=== PATIENT | male | born 1955 | race Caucasian/White ===

== ENCOUNTER 2018-06-02 11:36 | Emergency (ER) | payer MEDICAID ==
[2018-06-02 11:54] VITALS: BP 135/80
== END 2018-06-02 13:16 | disposition left against medical advice (07) ==
LOC: ED 11:36
DX: Z53.21 Procedure and treatment not carried out due to patient leaving prior to being seen by health care provider (principal)

== ENCOUNTER 2018-06-21 05:18 | Emergency (ER) | payer MEDICAID ==
[2018-06-21] MEDS ORDERED: AMOXICILLIN 250 MG CAPSULE PO STA (06:00)
--- NOTE | 2018-06-21 06:05 | ED Physician Documentation ---
PD HPI HEENT - Stated complaint Stated Complaint: MOUTH/JAW PX - Chief complaint Chief Complaint: Heent - History obtained from History obtained from: Patient - History of Present Illness Timing - onset: How many days ago (4) Timing - duration: Days (4) Timing - details: Gradual onset, Still present Location: Tooth Improves: Medication Associated symptoms: Facial swelling Similar symptoms before: Diagnosis (bad teeth) Recently seen: Other (tooth extraction done about 3 weeks ago.) - Additional information Additional information: 62 y/o male with a history of TBI has developed pain in multiple teeth about 3 weeks after having 3 left upper teeth extracted. He has multiple teeth broken off and has pain along the upper and lower on the right and along the lower on the left. He has no drainage or mass and has most of the tenderness along the lower jaw on the right. 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 He is able to have local anesthetic for extraction. Review of Systems Constitutional: reports: Fatigue. denies: Fever, Chills, Myalgias Eyes: denies: Decreased vision Ears: denies: Ear pain Nose: denies: Rhinorrhea / runny nose, Congestion Throat: reports: Dental pain / toothache Cardiac: denies: Chest pain / pressure, Palpitations Respiratory: denies: Dyspnea, Cough PD PAST MEDICAL HISTORY - Past Medical History Past Medical History: Yes Neuro: Peripheral neuropathy Musculoskeletal: Chronic back pain - Past Surgical History Past Surgical History: Yes Ortho: Hip replacement - Present Medications Home Medications: Ambulatory Orders Medication Instructions Recorded Confirmed Amoxicillin 875 mg PO BID #20 tablet 06/21/18 Hydrocodone/Acetaminophen 1 - 2 each PO Q6H PRN #14 tablet 06/21/18 [Hydrocodon-Acetaminophen 5-325] hydroCHLOROthiazide 0 mg PO 06/21/18 [Hydrochlorothiazide] - Allergies Allergies/Adverse Reactions: Allergies Allergy/AdvReac Type Severity Reaction Status Date / Time No Known Drug Allergies Allergy Verified 06/21/18 05:33 - Social History Does the pt smoke?: No Smoking Status: Never smoker Does the pt drink ETOH?: No Does the pt have substance abuse?: No PD ED PE NORMAL - Vitals Vital signs reviewed: Yes (hypertensive ) - General General: No acute distress, Well developed/nourished - HEENT HEENT: Atraumatic, PERRL, EOMI, Other (There are multiple teeth broken off at the base both upper and lower. There is maximum tenderness to the right lower jaw over the pre-molar area and there is tenderness to the buccal/gingival fold on the right lower without fluctuance. 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 He is given PO amoxicilin 750mg and we will place him on a course and provide some pain medication. Departure - Departure Disposition: 01 Home, Self Care Clinical Impression: Dental infection Condition: Stable Instructions: ED Abscess Dental Follow-Up: Warren Lopez MD [Provider Admit Priv/Credential] - Prescriptions: Amoxicillin 875 mg PO BID #20 tablet Hydrocodone/Acetaminophen [Hydrocodon-Acetaminophen 5-325] 1 - 2 each PO Q6H PRN #14 tablet PRN Reason: pain
[2018-06-21] MEDS ORDERED: HYDROcod/ACET 5/325 Prepack 4 PO STA (06:11)
[2018-06-21 06:16] VITALS: BP 158/82
== END 2018-06-21 06:30 | disposition home or self-care (01) ==
LOC: ED 05:18
DX: K04.7 Periapical abscess without sinus (principal)
CPT/HCPCS: 99283; A9270

== ENCOUNTER 2018-06-24 16:58 | Emergency (ER) | payer MEDICAID ==
[2018-06-24] MEDS ORDERED: SODIUM CHLORIDE 0.9% 2,000 ML IV ONE (17:31)
[2018-06-24] MEDS ORDERED: INSULIN REGULAR HUMAN 100 UNIT/1 ML 10 ML MDV IVP STA (17:31)
[2018-06-24 18:16] LABS: BASOPHILS % (AUTO) 0.7 %; EOSINOPHILS # (AUTO) 0.1 10^3/uL (0.0-0.7); EOSINOPHILS % (AUTO) 1.6 %; HGB - HEMOGLOBIN 13.2 g/dL (14.0-18.0); LYMPHOCYTES # (AUTO) 1.7 10^3/uL (1.5-3.5); LYMPHOCYTES % (AUTO) 30.5 %; MEAN CORPUSCULAR HEMOGLOBIN 29.5 pg (27.0-31.0); MEAN CORPUSCULAR VOLUME 86.7 fL (80.0-94.0); MONOCYTES # (AUTO) 0.3 10^3/uL (0.0-1.0); NEUTROPHILS # (AUTO) 3.5 10^3/uL (1.5-6.6); NEUTROPHILS % (AUTO) 61.2 %; PLT - PLATELET COUNT 239 10^3/uL (130-450); RED BLOOD COUNT 4.47 10^6/uL (4.70-6.10); RED CELL DISTRIBUTION WIDTH 13.9 % (12.0-15.0); WHITE BLOOD COUNT 5.7 x10^3/uL (4.8-10.8)
[2018-06-24 18:28] LABS: ALBUMIN 4.6 g/dL (3.2-5.5); ALBUMIN/GLOBULIN RATIO 1.4 (1.0-2.2); BILIRUBIN,TOTAL 0.7 mg/dL (0.2-1.0); CALCIUM 9.3 mg/dL (8.5-10.3); CREATININE 1.3 mg/dL (0.6-1.2)
[2018-06-24] MEDS ORDERED: SODIUM CHLORIDE 0.9% 1,000 ML IV ONE (18:35)
[2018-06-24 19:03] LABS: BILIRUBIN,URINE NEGATIVE (NEGATIVE); GLUCOSE, URINE (UA) >=1000 mg/dL (NEGATIVE); KETONES,URINE (UA) NEGATIVE (NEGATIVE); LEUKOCYTE ESTERASE, URINE NEGATIVE (NEGATIVE); NITRITE,URINE NEGATIVE (NEGATIVE); OCCULT BLOOD,URINE NEGATIVE (NEGATIVE); PROTEIN,URINE NEGATIVE (NEGATIVE); UROBILINOGEN,URINE 0.2 (NORMAL) E.U./dL (NORMAL)
[2018-06-24 19:04] LABS: CLARITY,URINE CLEAR (CLEAR)
--- NOTE | 2018-06-24 19:32 | ED Physician Documentation ---
History of Present Illness - Stated complaint Stated Complaint: HIGH BLOOD SUGAR/SENT BY DOC - Chief complaint Chief Complaint: General - Additonal information Additional information: 62-year-old male was sent to the emergency department For evaluation of elevated blood sugar. The patient found his blood sugar to be elevated today at home and his primary sent him in for further evaluation. The patient has no acute symptoms. The patient only takes his metformin when his blood sugar is elevated and does not take it on a daily basis. No reports of fevers, cough, dysuria or diarrhea. No other associated symptoms. No URI symptoms or other infectious symptoms. Symptoms are described as mild. No other associated symptoms. No triggering factors. No relieving factors Review of Systems Constitutional: denies: Fever, Chills Eyes: denies: Discharge Ears: denies: Ear pain Throat: denies: Sore throat Cardiac: denies: Chest pain / pressure, Palpitations Respiratory: denies: Dyspnea GI: denies: Abdominal Pain : denies: Dysuria Skin: denies: Rash Musculoskeletal: denies: Neck pain Neurologic: denies: Generalized weakness PD PAST MEDICAL HISTORY - Past Medical History Past Medical History: Yes Cardiovascular: Hypertension, High cholesterol Respiratory: Other Neuro: Head injury, Peripheral neuropathy Endocrine/Autoimmune: Type 2 diabetes GI: None : None HEENT: None Psych: Anxiety, Post traumatic stress disorder Musculoskeletal: Chronic back pain Derm: None - Past Surgical History Past Surgical History: Yes Ortho: Hip replacement - Present Medications Home Medications: Ambulatory Orders Medication Instructions Recorded Confirmed Amoxicillin 875 mg PO BID #20 tablet 06/21/18 Hydrocodone/Acetaminophen 1 - 2 each PO Q6H PRN #14 tablet 06/21/18 [Hydrocodon-Acetaminophen 5-325] hydroCHLOROthiazide 0 mg PO 06/21/18 [Hydrochlorothiazide] - Allergies Allergies/Adverse Reactions: Allergies Allergy/AdvReac Type Severity Reaction Status Date / Time No Known Drug Allergies Allergy Verified 06/21/18 05:33 - Social History Does the pt smoke?: No Smoking Status: Never smoker Does the pt drink ETOH?: No Does the pt have substance abuse?: No - Immunizations Immunizations are current?: Yes - POLST Patient has POLST: No PD ED PE NORMAL - General General: Alert and oriented X 3, No acute distress - HEENT HEENT: Atraumatic, PERRL, EOMI, Ears normal - Neck Neck: Supple, no meningeal sign - Cardiac Cardiac: RRR, Strong equal pulses - Respiratory Respiratory: No respiratory distress - Abdomen Abdomen: Soft, Non tender - Derm Derm: Normal color - Extremities Extremities: No deformity - Neuro Neuro: Alert and oriented X 3, Normal speech - Psych Psych: Normal affect Results - Vitals Vitals: Vital Signs - 24 hr 06/24/18 17:13 Temperature 36.8 C Heart Rate 108 H Respiratory 18 Rate Blood Pressure 137/95 H O2 Saturation 97 Oxygen O2 Source Room air - EKG (time done) 17:50 Rate: Rate (enter#) Rhythm: NSR Intervals: Normal ME Ischemia: Non specific changes - Labs Labs: Laboratory Tests 06/24/18 06/24/18 06/24/18 18:00 18:00 18:51 WBC 5.7 RBC 4.47 L Hgb 13.2 L Hct 38.8 L MCV 86.7 MCH 29.5 MCHC 34.0 RDW 13.9 Plt Count 239 MPV 9.0 Neut # (Auto) 3.5 Lymph # (Auto) 1.7 [place] # (Auto) 0.3 Eos # (Auto) 0.1 Baso # (Auto) 0.0 Absolute Nucleated RBC 0.01 Nucleated RBC % 0.2 Sodium 124 L Potassium 3.7 Chloride 89 L Carbon Dioxide 24 Anion Gap 11.0 BUN 23 H Creatinine 1.3 H Estimated GFR (MDRD) 56 L Glucose 445 H Calcium 9.3 Total Bilirubin 0.7 AST 16 ALT 19 Alkaline Phosphatase 99 Total Protein 8.0 Albumin 4.6 Globulin 3.4 Albumin/Globulin Ratio 1.4 Lipase 26 Urine Color YELLOW Urine Clarity CLEAR Urine pH 6.0 Ur Specific [place] 1.010 Urine Protein NEGATIVE Urine Glucose (UA) >=1000 H Urine Ketones NEGATIVE Urine Occult Blood NEGATIVE Urine Nitrite NEGATIVE Urine Bilirubin NEGATIVE Urine Urobilinogen 0.2 (NORMAL) Ur Leukocyte Esterase NEGATIVE Ur Microscopic Review NOT INDICATED Urine Culture Comments NOT INDICATED PD MEDICAL DECISION MAKING - ED course ED course: The patient's blood sugar responded with IV fluids and IV insulin. Presently, there is no acute finding that would necessitate admission to the hospital. The patient appears appropriate for discharge. I recommended that he take his metformin twice daily instead of just when his blood sugar is elevated. The p atient understands and agrees. I advised that the patient follow up with primary care tomorrow for further management of his diabetes. I discussed warning signs and recommended returning for any worsening or any concerns. Departure - Departure Disposition: Home, Self Care Clinical Impression: Hyperglycemia Condition: Good Instructions: Hyperglycemia, Diabetes High Blood Sugar Ch Follow-Up: Warren Lopez MD [Primary Care Provider] - Tomorrow Comments: Please start taking your metformin twice a day, you should take 500 mg twice daily. Please follow-up with your primary care tomorrow for ongoing investigation. Please return to the emergency department immediately for any worsening or any concerns.
[2018-06-24 19:41] VITALS: BP 137/81
== END 2018-06-24 19:45 | disposition home or self-care (01) ==
LOC: ED 16:58
DX: E11.65 Type 2 diabetes mellitus with hyperglycemia (principal); E11.42 Type 2 diabetes mellitus with diabetic polyneuropathy; Z79.84 Long term (current) use of oral hypoglycemic drugs; I10 Essential (primary) hypertension; T38.3X6A Underdosing of insulin and oral hypoglycemic [antidiabetic] drugs, initial encounter; Z91.14 Patient's other noncompliance with medication regimen
CPT/HCPCS: 36415; 80053; 81003; 83690; 85025; 93005; 96360; 96361; 99283; J1815; 81001; 87086

== ENCOUNTER 2018-06-25 17:05 | Emergency (ER) | payer MEDICAID ==
[2018-06-25 17:14] VITALS: BP 145/71
[2018-06-25] MEDS ORDERED: SODIUM CHLORIDE 0.9% 1,000 ML IV STA (17:23)
[2018-06-25] MEDS ORDERED: INSULIN REGULAR HUMAN 100 UNIT/1 ML 10 ML MDV IVP STA (17:52)
--- NOTE | 2018-06-25 17:56 | ED Physician Documentation ---
History of Present Illness - Stated complaint Stated Complaint: HIGH BLOOD SUGAR - Chief complaint Chief Complaint: General - History obtained from History obtained from: Patient - History of Present Illness Timing: How many days ago (2) Pain level max: 0 Pain level now: 0 Improved by: nothing Worsened by: nothing - Additonal information Additional information: Patient is a 62-year-old diabetic male who states that his blood sugars been high for the past several days. Seen here x2 and states his blood sugar increased again today. He has a history of traumatic brain injury and states he is taking his metformin half a pill once a day. He states that he also needs referrals for cognitive therapy as well as speech therapy, orthopedics and neurology. He states that his doctor will not prescribe these for him. Review of Systems Ten Systems: 10 systems reviewed and negative Constitutional: denies: Fever, Chills Ears: denies: Ear pain Nose: denies: Rhinorrhea / runny nose, Congestion Cardiac: denies: Chest pain / pressure Respiratory: denies: Cough, Wheezing Skin: denies: Rash Musculoskeletal: denies: Neck pain, Back pain Neurologic: denies: Headache PD PAST MEDICAL HISTORY - Past Medical History Past Medical History: Yes Cardiovascular: Hypertension, High cholesterol Respiratory: Other Neuro: Head injury, Peripheral neuropathy Endocrine/Autoimmune: Type 2 diabetes GI: None : None HEENT: None Psych: Anxiety, Post traumatic stress disorder Musculoskeletal: Chronic back pain Derm: None - Past Surgical History Past Surgical History: Yes Ortho: Hip replacement - Present Medications Home Medications: Ambulatory Orders Medication Instructions Recorded Confirmed Amoxicillin 875 mg PO BID #20 tablet 06/21/18 Hydrocodone/Acetaminophen 1 - 2 each PO Q6H PRN #14 tablet 06/21/18 [Hydrocodon-Acetaminophen 5-325] hydroCHLOROthiazide 0 mg PO 06/21/18 [Hydrochlorothiazide] Gemfibrozil 600 mg PO 06/25/18 06/25/18 Meclizine [Antivert] 1 06/25/18 Metformin HCl 1,000 mg PO BID #120 tablet 06/25/18 Metformin HCl [Fortamet] 500 mg PO 06/25/18 06/25/18 - Allergies Allergies/Adverse Reactions: Allergies Allergy/AdvReac Type Severity Reaction Status Date / Time No Known Drug Allergies Allergy Verified 06/25/18 17:14 - Social History Does the pt smoke?: No Smoking Status: Never smoker Does the pt drink ETOH?: No Does the pt have substance abuse?: No - Immunizations Immunizations are current?: Yes - POLST Patient has POLST: No PD ED PE NORMAL - Vitals Vital signs reviewed: Yes - General General: Alert and oriented X 3, No acute distress - HEENT HEENT: Moist mucous membranes - Neck Neck: Supple, no meningeal sign - Cardiac Cardiac: RRR, Strong equal pulses - Respiratory Respiratory: No respiratory distress, Clear bilaterally - Abdomen Abdomen: Soft, Non tender, Non distended - Derm Derm: Warm and dry - Neuro Neuro: Alert and oriented X 3 - Psych Psych: Normal mood, Normal affect Results - Vitals Vitals: Vital Signs - 24 hr 06/25/18 17:10 Temperature 36 C L Heart Rate 85 Respiratory 20 Rate Blood Pressure 145/71 H O2 Saturation 100 Oxygen O2 Source Room air - Labs Labs: Laboratory Tests 06/25/18 06/25/18 06/25/18 17:20 18:00 18:00 WBC 5.1 RBC 4.53 L Hgb 13.2 L Hct 39.6 L MCV 87.4 MCH 29.2 MCHC 33.5 RDW 13.9 Plt Count 242 MPV 9.0 Neut # (Auto) 2.9 Lymph # (Auto) 1.6 [place] # (Auto) 0.4 Eos # (Auto) 0.1 Baso # (Auto) 0.0 Absolute Nucleated RBC 0.01 Nucleated RBC % 0.2 VBG pH VBG pCO2 VBG pO2 VBG HCO3 VBG Total CO2 VBG O2 Saturation VBG Base Excess Sodium 129 L Potassium 4.0 Chloride 93 L Carbon Dioxide 26 Anion Gap 10.0 BUN 20 Creatinine 1.3 H Estimated GFR (MDRD) 56 L Glucose 438 H POC Whole Bld Glucose 479 H Glycated Hemoglobin Estim Average Glucose Calcium 9.6 Total Bilirubin 0.7 AST 16 ALT 19 Alkaline Phosphatase 93 Total Protein 7.9 Albumin 4.4 Globulin 3.5 Albumin/Globulin Ratio 1.3 Lipase 22 Urine Color Urine Clarity Urine pH Ur Specific [place] Urine Protein Urine Glucose (UA) Urine Ketones Urine Occult Blood Urine Nitrite Urine Bilirubin Urine Urobilinogen Ur Leukocyte Esterase Ur Microscopic Review Urine Culture Comments Serum Ketones NEGATIVE 06/25/18 06/25/18 06/25/18 18:00 18:00 18:55 WBC RBC Hgb Hct MCV MCH MCHC RDW Plt Count MPV Neut # (Auto) Lymph # (Auto) [place] # (Auto) Eos # (Auto) Baso # (Auto) Absolute Nucleated RBC Nucleated RBC % VBG pH 7.331 VBG pCO2 49.4 VBG pO2 42.7 VBG HCO3 25.5 VBG Total CO2 27.0 VBG O2 Saturation 78.3 VBG Base Excess -1.0 Sodium Potassium Chloride Carbon Dioxide Anion Gap BUN Creatinine Estimated GFR (MDRD) Glucose POC Whole Bld Glucose Glycated Hemoglobin 13.5 H Estim Average Glucose 341 H Calcium Total Bilirubin AST ALT Alkaline Phosphatase Total Protein Albumin Globulin Albumin/Globulin Ratio Lipase Urine Color YELLOW Urine Clarity CLEAR Urine pH 6.0 Ur Specific [place] 1.015 Urine Protein NEGATIVE Urine Glucose (UA) >=1000 H Urine Ketones NEGATIVE Urine Occult Blood NEGATIVE Urine Nitrite NEGATIVE Urine Bilirubin NEGATIVE Urine Urobilinogen 0.2 (NORMAL) Ur Leukocyte Esterase NEGATIVE Ur Microscopic Review NOT INDICATED Urine Culture Comments NOT INDICATED Serum Ketones 06/25/18 19:31 WBC RBC Hgb Hct MCV MCH MCHC RDW Plt Count MPV Neut # (Auto) Lymph # (Auto) [place] # (Auto) Eos # (Auto) Baso # (Auto) Absolute Nucleated RBC Nucleated RBC % VBG pH VBG pCO2 VBG pO2 VBG HCO3 VBG Total CO2 VBG O2 Saturation VBG Base Excess Sodium Potassium Chloride Carbon Dioxide Anion Gap BUN Creatinine Estimated GFR (MDRD) Glucose POC Whole Bld Glucose 251 H Glycated Hemoglobin Estim Average Glucose Calcium Total Bilirubin AST ALT Alkaline Phosphatase Total Protein Albumin Globulin Albumin/Globulin Ratio Lipase Urine Color Urine Clarity Urine pH Ur Specific [place] Urine Protein Urine Glucose (UA) Urine Ketones Urine Occult Blood Urine Nitrite Urine Bilirubin Urine Urobilinogen Ur Leukocyte Esterase Ur Microscopic Review Urine Culture Comments Serum Ketones PD MEDICAL DECISION MAKING - ED course Complexity details: reviewed old records, reviewed results, re-evaluated patient, considered differential, d/w patient ED course: 62-year-old male with hyperglycemia. Given insulin and his blood sugar decreased. Counseled again regarding the changes to his metformin. Hemoglobin A1c is over 13. Patient was counseled that he needs to take the metformin as prescribed and follow-up closely with his doctor to have his medications adjusted. No other emergency medical conditions at this time. Patient counseled regarding signs and symptoms for which I believe and urgent re- evaluation would be necessary. Patient with good understanding of and agreement to plan and is comfortable going home at this time This document was made in part using voice recognition software. While efforts are made to proofread this document, sound alike and grammatical errors may occur. Departure - Departure Disposition: 01 Home, Self Care Clinical Impression: Hyperglycemia Condition: Good Instructions: ED Hyperglycemia Diabetic Follow-Up: Warren Lopez MD [Primary Care Provider] - Within 3 Days Prescriptions: Metformin HCl 1,000 mg PO BID #120 tablet Comments: Your average blood sugar over the past 3 months has been over 340. You need to increase your metformin to 2 pills twice a day. Follow-up with your doctor for further care. Discharge Date/Time: 06/25/18 19:52
[2018-06-25 18:14] LABS: BASOPHILS % (AUTO) 0.6 %; EOSINOPHILS # (AUTO) 0.1 10^3/uL (0.0-0.7); EOSINOPHILS % (AUTO) 2.6 %; HGB - HEMOGLOBIN 13.2 g/dL (14.0-18.0); LYMPHOCYTES # (AUTO) 1.6 10^3/uL (1.5-3.5); LYMPHOCYTES % (AUTO) 31.9 %; MEAN CORPUSCULAR HEMOGLOBIN 29.2 pg (27.0-31.0); MEAN CORPUSCULAR HGB CONC 33.5 g/dL (32.0-36.0); MEAN CORPUSCULAR VOLUME 87.4 fL (80.0-94.0); MONOCYTES # (AUTO) 0.4 10^3/uL (0.0-1.0); MONOCYTES % (AUTO) 7.7 %; NEUTROPHILS # (AUTO) 2.9 10^3/uL (1.5-6.6); NEUTROPHILS % (AUTO) 57.2 %; PLT - PLATELET COUNT 242 10^3/uL (130-450); RED BLOOD COUNT 4.53 10^6/uL (4.70-6.10); RED CELL DISTRIBUTION WIDTH 13.9 % (12.0-15.0); WHITE BLOOD COUNT 5.1 x10^3/uL (4.8-10.8)
[2018-06-25 18:18] LABS: VBG PCO2 49.4 mmHg (41-51); VBG PH 7.331 (7.31-7.41); VBG PO2 42.7 mmHg (25-47)
[2018-06-25 18:23] LABS: KETONES, SERUM (ACETEST) NEGATIVE (NEGATIVE)
[2018-06-25 18:30] LABS: ALBUMIN 4.4 g/dL (3.2-5.5); ALBUMIN/GLOBULIN RATIO 1.3 (1.0-2.2); ALKALINE PHOSPHATASE 93 IU/L (42-121); ALT ALANINE AMINOTRANSFERASE 19 IU/L (10-60); AST ASPARTATE AMINOTRANSFERASE 16 IU/L (10-42); BILIRUBIN,TOTAL 0.7 mg/dL (0.2-1.0); BUN - BLOOD UREA NITROGEN 20 mg/dL (6-20); CALCIUM 9.6 mg/dL (8.5-10.3); CARBON DIOXIDE - CO2 26 mmol/L (21-32); CHLORIDE 93 mmol/L (101-111); CREATININE 1.3 mg/dL (0.6-1.2); GFR - MDRD 56 (>89); GLUCOSE 438 mg/dL (70-100); LIPASE 22 U/L (22-51); SODIUM 129 mmol/L (135-145); TOTAL PROTEIN 7.9 g/dL (6.7-8.2)
[2018-06-25 18:48] LABS: HEMOGLOBIN A1C 1.73 g/dL; HEMOGLOBIN A1C % 13.5 % (4.6-6.2)
[2018-06-25 19:08] LABS: BILIRUBIN,URINE NEGATIVE (NEGATIVE); GLUCOSE, URINE (UA) >=1000 mg/dL (NEGATIVE); KETONES,URINE (UA) NEGATIVE (NEGATIVE); LEUKOCYTE ESTERASE, URINE NEGATIVE (NEGATIVE); NITRITE,URINE NEGATIVE (NEGATIVE); OCCULT BLOOD,URINE NEGATIVE (NEGATIVE); PROTEIN,URINE NEGATIVE (NEGATIVE); UROBILINOGEN,URINE 0.2 (NORMAL) E.U./dL (NORMAL)
[2018-06-25 19:09] LABS: CLARITY,URINE CLEAR (CLEAR)
== END 2018-06-25 19:52 | disposition home or self-care (01) ==
LOC: ED 17:05
DX: E11.65 Type 2 diabetes mellitus with hyperglycemia (principal); E11.42 Type 2 diabetes mellitus with diabetic polyneuropathy; Z79.84 Long term (current) use of oral hypoglycemic drugs; T38.3X6A Underdosing of insulin and oral hypoglycemic [antidiabetic] drugs, initial encounter; Z91.14 Patient's other noncompliance with medication regimen; I10 Essential (primary) hypertension; Z87.820 Personal history of traumatic brain injury
CPT/HCPCS: 36415; 80048; 80053; 81003; 82009; 82803; 83036; 83690; 84484; 85025; 93005; 96360; 96361; 99283; 99284; A9270; J1815; 81001; 87086

== ENCOUNTER 2018-07-18 20:05 | Emergency (ER) | payer MEDICAID ==
[2018-07-18 20:18] VITALS: BP 174/79
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
[2018-07-18] MEDS ORDERED: METHOCARBAMOL 500 MG TABLET PO STA (20:57)
[2018-07-18] MEDS ORDERED: NAPROXEN 250 MG TABLET PO STA (20:57)
[2018-07-18] MEDS ORDERED: HYDROcod/ACET 5/325 Prepack 4 PO STA (20:57)
== END 2018-07-18 21:14 | disposition home or self-care (01) ==
LOC: ED 20:05
DX: M54.2 Cervicalgia (principal); I10 Essential (primary) hypertension; E78.00 Pure hypercholesterolemia, unspecified; E11.42 Type 2 diabetes mellitus with diabetic polyneuropathy; G89.29 Other chronic pain; Z96.649 Presence of unspecified artificial hip joint; Z87.820 Personal history of traumatic brain injury
CPT/HCPCS: 99283; A9270

== ENCOUNTER 2018-09-29 14:36 | Emergency (ER) | payer MEDICAID ==
[2018-09-29] MEDS ORDERED: KETOROLAC 60 MG/2 ML VIAL IM STA (15:30)
--- NOTE | 2018-09-29 15:31 | ED Physician Documentation ---
PD HPI BACK PAIN - Stated complaint Stated Complaint: LOWER BACK PX - Chief complaint Chief Complaint: Back Pain - History obtained from History obtained from: Patient - History of Present Illness Timing - onset: Chronic Timing - duration: Years Timing - details: Gradual onset Pain level max: 8 Pain level now: 5 Location: Lower, Right, Left Quality: Pain, Spasm, Similar to prior episodes Associated symptoms: No: Fever, Weakness, Numbness, Incontinent of urine, Unable to urinate, Hematuria, Incontinent of stool Improves with: Rest Worsened by: Movement, Lifting Contributing factors: Out of meds Recently seen: Not recently seen Review of Systems Constitutional: denies: Fever, Chills Skin: denies: Rash Musculoskeletal: denies: Neck pain Neurologic: denies: Focal weakness, Numbness PD PAST MEDICAL HISTORY - Past Medical History Cardiovascular: Hypertension, High cholesterol Respiratory: Other Neuro: Head injury, Peripheral neuropathy Endocrine/Autoimmune: Type 2 diabetes GI: None : None HEENT: None Psych: Anxiety, Post traumatic stress disorder Musculoskeletal: Chronic back pain Derm: None - Past Surgical History Past Surgical History: Yes Ortho: Hip replacement - Present Medications Home Medications: Ambulatory Orders Medication Instructions Recorded Confirmed Amoxicillin 875 mg PO BID #20 tablet 06/21/18 Hydrocodone/Acetaminophen 1 - 2 each PO Q6H PRN #14 tablet 06/21/18 [Hydrocodon-Acetaminophen 5-325] hydroCHLOROthiazide 0 mg PO 06/21/18 [Hydrochlorothiazide] Gemfibrozil 600 mg PO 06/25/18 06/25/18 Meclizine [Antivert] 1 06/25/18 Metformin HCl 1,000 mg PO BID #120 tablet 06/25/18 Metformin HCl [Fortamet] 500 mg PO 06/25/18 06/25/18 Hydrocodone/Acetaminophen [[place] 1 each PO Q6H PRN #15 tablet 07/18/18 5-325 Tablet] Methocarbamol [Robaxin] 500 mg PO TID PRN #20 tablet 07/18/18 Naproxen 500 mg PO BID #20 tablet 07/18/18 Cyclobenzaprine [Flexeril] 10 mg PO TID PRN #20 tablet 09/29/18 Meloxicam [Mobic] 15 mg PO DAILY PRN #20 tablet 09/29/18 - Allergies Allergies/Adverse Reactions: Allergies Allergy/AdvReac Type Severity Reaction Status Date / Time No Known Drug Allergies Allergy Verified 09/29/18 15:55 - Social History Does the pt smoke?: No Smoking Status: Never smoker Does the pt drink ETOH?: No Does the pt have substance abuse?: No - Immunizations Immunizations are current?: Yes - POLST Patient has POLST: No PD ED PE NORMAL - Vitals Vital signs reviewed: Yes - General General: Alert and oriented X 3, No acute distress - HEENT HEENT: Moist mucous membranes - Neck Neck: Supple, no meningeal sign - Cardiac Cardiac: RRR - Respiratory Respiratory: No respiratory distress, Clear bilaterally - Back Back: No spinal TTP - Derm Derm: Warm and dry - Neuro Neuro: Alert and oriented X 3 Results - Vitals Vitals: Vital Signs - 24 hr 09/29/18 09/29/18 14:41 16:19 Temperature 36.6 C 36.4 C L Heart Rate 107 H 95 Respiratory 18 12 Rate Blood Pressure 151/51 H 137/83 H O2 Saturation 96 96 Oxygen O2 Source Room air PD MEDICAL DECISION MAKING - ED course Complexity details: considered differential, d/w patient ED course: Patient with chronic back pain. Will place on muscle relaxants and anti- inflammatories for home. Sees his doctor tomorrow. No evidence of cauda equina, epidural abscess. No changes in his pain. Patient counseled regarding signs and symptoms for which I believe and urgent re-evaluation would be necessary. Patient with good understanding of and agreement to plan and is comfortable going home at this time This document was made in part using voice recognition software. While efforts are made to proofread this document, sound alike and grammatical errors may occur. Departure - Departure Disposition: 01 Home, Self Care Clinical Impression: Back pain Qualifiers: Back pain location: low back pain Chronicity: chronic Back pain laterality: bilateral Sciatica presence: without sciatica Qualified Code(s): M54.5 - Low back pain Condition: Good Instructions: ED Neck Back Pain General Follow-Up: Warren Lopez MD [Primary Care Provider] - Tomorrow Prescriptions: Cyclobenzaprine [Flexeril] 10 mg PO TID PRN #20 tablet PRN Reason: Spasms Meloxicam [Mobic] 15 mg PO DAILY PRN #20 tablet PRN Reason: pain Comments: Follow-up with your doctor tomorrow for further care. Do not drive or operate heavy machinery while taking the Flexeril. Discharge Date/Time: 09/29/18 16:42
[2018-09-29 16:20] VITALS: BP 137/83
== END 2018-09-29 16:42 | disposition home or self-care (01) ==
LOC: ED 14:36
DX: M54.5 Low back pain (principal); G89.29 Other chronic pain; I10 Essential (primary) hypertension; E11.42 Type 2 diabetes mellitus with diabetic polyneuropathy; Z79.84 Long term (current) use of oral hypoglycemic drugs
CPT/HCPCS: 96372; 99283

== ENCOUNTER 2018-09-30 15:51 | Outpatient (CLI) | payer MEDICAID ==
--- NOTE | 2018-10-01 08:34 | XRAY Report ---
Reason: COUGH,CHRONIC LOW BACK PAIN Procedure Date: 09/30/2018 Accession Number: [id number] / [id number] Procedure: XR - Lumbar Spine 2 View CPT Code: FULL RESULT: EXAM: LUMBOSACRAL SPINE RADIOGRAPHY EXAM DATE: 09/30/2018 04:31 PM. CLINICAL HISTORY: Cough, chronic low back pain. COMPARISONS: None. TECHNIQUE: 3 views. FINDINGS: Alignment: Normal. No spondylolisthesis or scoliosis. Bones: There are hypoplastic ribs on T12 with 5 [id number] lumbar vertebrae. No fractures or bone lesions. Disks: There is mild degenerative disk space narrowing and endplate sclerosis at L4-L5 and slightly greater at L5-S1. Facets: No degenerative changes. Sacroiliac Joints: Mild degenerative changes of the inferior right sacroiliac joint. Possible partial fusion of the upper third left SI joint. Soft Tissues: Normal. The visualized bowel gas pattern is normal. 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 IMPRESSION: 1. Degenerative disk changes at L4-L5 and L5-S1. No fracture. 2. Degenerative changes of the SI joints and left hip. [facility]
--- NOTE | 2018-10-01 08:44 | XRAY Report ---
Reason: COUGH,CHRONIC LOW BACK PAIN Procedure Date: 09/30/2018 Accession Number: [id number] / [id number] Procedure: XR - Chest 2 View X-Ray CPT Code: 80546 FULL RESULT: EXAM: CHEST RADIOGRAPHY EXAM DATE: 09/30/2018 04:31 PM. CLINICAL HISTORY: Cough, chronic low back pain. COMPARISON: None. TECHNIQUE: 2 views. FINDINGS: Lungs/Pleura: No airspace opacities. No effusion or extraventilatory air. 7 mm rounded nodular opacity overlies the right anterior sixth rib indeterminate between a nipple shadow and pulmonary nodule. Mediastinum: Heart and mediastinal contours are unremarkable. Other: None. IMPRESSION: 1. No infiltrates. 2. 7 mm nodular opacity over the right lung base. Recommend repeat examination with nipple markers to differentiate a nipple shadow from a pulmonary nodule. [facility]
== END 2018-09-30 15:52 | disposition home or self-care (01) ==
LOC: DI 15:51
PROVIDERS: ATTEND Family Medicine
DX: R91.8 Other nonspecific abnormal finding of lung field (principal); M51.36 Other intervertebral disc degeneration, lumbar region; M51.37 Other intervertebral disc degeneration, lumbosacral region; M47.898 Other spondylosis, sacral and sacrococcygeal region; M16.12 Unilateral primary osteoarthritis, left hip
CPT/HCPCS: 71046; 72100

== ENCOUNTER 2018-12-24 18:21 | Emergency (ER) | payer MEDICAID ==
[2018-12-24] MEDS ORDERED: AMOX/CLAV 875 MG/125 MG TABLET PO STA (20:05)
--- NOTE | 2018-12-24 20:07 | ED Physician Documentation ---
PD HPI LOWER EXT INJURY - Stated complaint Stated Complaint: RT TOE INJURY - Chief complaint Chief Complaint: Ext Problem - History obtained from History obtained from: Patient - History of Present Illness PD HPI LOW EXT INJURY LOCATION: Left (He was moving a refrigerator and it dropped on his foot yesterday. He does not really have any pain because he has diabetic neuropathy.) Review of Systems Constitutional: reports: Reviewed and negative Nose: reports: Reviewed and negative Cardiac: reports: Reviewed and negative PD PAST MEDICAL HISTORY - Past Medical History Past Medical History: Yes Cardiovascular: Hypertension, High cholesterol Respiratory: Other Neuro: Head injury, Peripheral neuropathy Endocrine/Autoimmune: Type 2 diabetes GI: None : None HEENT: None Psych: Anxiety, Post traumatic stress disorder Musculoskeletal: Chronic back pain Derm: None - Past Surgical History Past Surgical History: Yes Ortho: Hip replacement - Present Medications Home Medications: Ambulatory Orders Medication Instructions Recorded Confirmed RX: Gemfibrozil 600 mg PO BID 06/25/18 11/17/18 RX: Metformin HCl 1,000 mg PO BID #120 tablet 06/25/18 11/17/18 Acetaminophen with Codeine 1 - 2 each PO QID 11/17/18 11/17/18 [Tylenol with Codeine #3 Tablet] Insulin Glargine [Lantus Solostar] 30 unit SQ DAILY 11/17/18 11/17/18 Levothyroxine [Synthroid] 25 mcg PO QDAC 11/17/18 11/17/18 Lisinopril/Hydrochlorothiazide 1 each PO DAILY 11/17/18 11/17/18 [Lisinopril-Hctz 20-25 mg Tab] RX: Allopurinol 300 mg PO DAILY 11/17/18 11/17/18 RX: Gabapentin 300 mg PO Q4HR 11/17/18 11/17/18 Amox/Clav 875/125 [Augmentin] 1 each PO Q12H #10 tablet 12/24/18 Ibuprofen [Motrin] 800 mg PO Q8H PRN #14 tablet 12/24/18 - Allergies Allergies/Adverse Reactions: Allergies Allergy/AdvReac Type Severity Reaction Status Date / Time No Known Drug Allergies Allergy Verified 12/24/18 18:50 - Social History Does the pt smoke?: No Smoking Status: Never smoker Does the pt drink ETOH?: No Does the pt have substance abuse?: No - Immunizations Immunizations are current?: Yes - POLST Patient has POLST: No PD ED PE NORMAL - Vitals Vital signs reviewed: Yes - General General: Alert and oriented X 3, No acute distress - Extremities Extremities: Other (The left great toe is partially avulsed, floppy with a large subcutaneous hematoma proximal to it on the dorsal surface. There is no tenderness, but he is neuropathic.) - Neuro Neuro: Alert and oriented X 3, Normal speech Results - Vitals Vitals: Vital Signs - 24 hr 12/24/18 12/24/18 18:43 20:27 Temperature 36.3 C L 36.6 C Heart Rate 88 86 Respiratory 16 18 Rate Blood Pressure 134/82 H 119/84 H O2 Saturation 97 99 Oxygen O2 Source Room air - Rads (name of study) XR L 1st Toe Radiology: EMP read contemporaneously (no frx) Procedures - General procedure General procedure: The toenail was pretty much already completely avulsed, it was removed without any tools and with minimal pain because of the neuropathy and that spontaneously drained to the hematoma proximal to it. Departure - Departure Disposition: 01 Home, Self Care Clinical Impression: Avulsion of toenail of left foot, Toe contusion Condition: Good Record reviewed to determine appropriate education?: Yes Instructions: ED Avulsion Nail Complete Prescriptions: Amox/Clav 875/125 [Augmentin] 1 each PO Q12H #10 tablet Ibuprofen [Motrin] 800 mg PO Q8H PRN #14 tablet PRN Reason: PAIN &/OR FEVER Comments: Given that you are diabetic I think a few days of prophylactic antibiotics for this injury is appropriate. Return for new or worsening symptoms. Follow-up with your doctor on Friday for a wound check. Discharge Date/Time: 12/24/18 21:03
[2018-12-24] MEDS ORDERED: IBUPROFEN 800 MG TABLET PO STA (20:24)
[2018-12-24 20:29] VITALS: BP 119/84
--- NOTE | 2018-12-24 20:34 | XRAY Report ---
Reason: toe inj Procedure Date: 12/24/2018 Accession Number: [id number] / [id number] Procedure: XR - Toe(s) RT CPT Code: FULL RESULT: EXAM: RIGHT TOE RADIOGRAPHY EXAM DATE: 12/24/2018 08:16 PM. CLINICAL HISTORY: Toe inj. Pain and bruising to the right great toe. COMPARISON: None. TECHNIQUE: 3 views. FINDINGS: Bones: Normal. No fracture or bone lesion. Joints: Mild joint space narrowing and osteophyte formation at the first metatarsal phalangeal joint. Soft Tissues: Normal. No soft tissue swelling. IMPRESSION: 1. No fracture or malalignment. 2. 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 [facility]
== END 2018-12-24 21:03 | disposition home or self-care (01) ==
LOC: ED 18:21
DX: S91.202A Unspecified open wound of left great toe with damage to nail, initial encounter (principal); W20.8XXA Other cause of strike by thrown, projected or falling object, initial encounter; E11.42 Type 2 diabetes mellitus with diabetic polyneuropathy; I10 Essential (primary) hypertension; Z79.4 Long term (current) use of insulin; Z79.899 Other long term (current) drug therapy
CPT/HCPCS: 73660; 99283; A9270